=== PATIENT | female | born 1995 | race Caucasian/White ===

== ENCOUNTER 2024-04-04 16:03 | Inpatient (IN) | payer OTHER ==
[~2024-04-04 16:03] MED LIST: Acetaminophen 500 MG TAB PO PRN; Bisacodyl 10 MG SUPP PR PRN; Boostrix 0.5 ML (Tdap) VIAL (>/=7 yrs of age) IM SCH; Bupivacaine HCl 0.5%/Epinephrine 1:200,000/PF 30 ml Vial ONE; Bupivacaine/Epinephrine 0.25% 30 ML VIAL ONE; CEFAZOLIN 2 GM VIAL ONE; Carboprost 250 MCG/ML AMP IM PRN; Carboprost 250 MCG/ML AMP ONE; Diphenoxylate HCl/Atropine Tablet PO PRN; HYDROcodone/Acetaminophen 5/325 mg Tablet PO PRN; Ibuprofen 800 MG TAB ONE; Ibuprofen 800 MG TAB PO PRN; Lactated Ringer's 1,000 ML IV SCH; Lactated Ringer's 500 ML IV PRN; Lanolin Ointment 7 GM TUBE TOP PRN; Lidocaine 1% (PF) 30 ML VIAL SC PRN; Methylergonovine 0.2 MG/ML VIAL IM PRN; Methylergonovine 0.2 MG/ML VIAL ONE; Milk Of Magnesia 30 ML UDCUP PO PRN; Misoprostol 200 MCG TAB ONE; Misoprostol 200 MCG TAB RC PRN; Misoprostol 200 MCG TAB VAG SCH; Moisturizing Cream (Eucerin) 113 GM JAR TOP PRN; Ondansetron PF 4 MG/2 ML Vial IVP PRN; Oxytocin 30 units/NS 500 ML 1,000 ML IV SCH; Oxytocin 30 units/NS 500 ML 500 ML IVPB SCH; Oxytocin 30 units/NS 500 ML 500 ML ONE; Preparation H Ointment 28 GM TUBE PR PRN; Promethazine HCl 25 MG/ML VIAL IM PRN; Tranexamic Acid 1,000 MG/10 ML VIAL IVP PRN; Tranexamic Acid 1,000 MG/10 ML VIAL ONE; diphenhydrAMINE 25 MG CAP PO PRN; ePHEDrine/0.9% NaCl/PF SYRINGE 50 mg/10 ml SLOW IVP PRN; fentaNYL 50 mcg/mL 1 mL Vial SLOW IVP PRN; fentaNYL/Ropivacaine Epidural 100 ML ONE; fentaNYL/Ropivacaine Epidural 100 ML in Premix 1 BAG EPIDURAL SCH; hydrALAZINE 20 MG/ML VIAL SLOW IVP PRN
[2024-04-04] MEDS ORDERED: Acetaminophen 500 MG TAB ONE (16:35)
[2024-04-04 21:42] LABS: HBsAg Index 0.17 S/CO (0-0.99); HIV (1/2) Antibody/Antigen NonReactive (NonReactive); HIV 1/2 INDEX 0.13 S/CO (<1.00); Hep B Surf Ag - L&D NonReactive S/CO (NonReactive)
[2024-04-04 21:43] LABS: Syphilis Antibody Nonreactive (Nonreactive); Syphilis Antibody Index 0.09 S/CO (<1.00 Non-Reactive)
[2024-04-04 21:44] LABS: #Basophils 0.01 10x3/uL (0.0-0.2); #Eosinophils 0.03 10x3/uL (0.0-0.5); #Monocytes 0.61 10x3/uL (0.0-1.1); #Neutrophils 7.02 10x3/uL (1.5-8.4); %Basophils 0.1 % (0.0-2.0); %Eosinophils 0.3 % (0.0-6.0); %Lymphocytes 23.6 % (18.0-47.0); %Neutrophils 68.9 % (40.0-75.0); Hematocrit 32.3 % (34.9-44.5); Hemoglobin 10.9 g/dL (12.0-15.5); Mean Corpuscular HGB CONC 33.7 g/dL (32.0-36.0); Mean Corpuscular Volume 85.9 fL (81.6-98.3); Mean Platelet Volume 10.7 fL (7.4-10.4); Platelet Count 321 10x3/uL (150-450); RBC Distribution Width 12.4 % (11.5-14.5); Red Blood Cell (RBC) Count 3.76 10x6/uL (3.90-5.03); White Blood Cell (WBC) Count 10.2 10x3/uL (3.5-10.5)
[2024-04-04 21:48] LABS: Amphetamine Not Detected (NotDetected); Barbiturates Screen Not Detected (NotDetected); Benzodiazepine Screen Not Detected (NotDetected); Cocaine Metabolite Screen Not Detected (NotDetected); Methadone Not Detected (NotDetected); Methamphetamine Not Detected (NotDetected); Opiate Screen Not Detected (NotDetected); Oxycodone Screen Not Detected (NotDetected); Phencyclidine (PCP) Not Detected (NotDetected); THC/Cannabinoid Screen Detected (NotDetected); Tricyclic Screen Not Detected (NotDetected)
[2024-04-04 22:33] LABS: Amphetamine Not Detected (NotDetected); Barbiturates Screen Not Detected (NotDetected); Benzodiazepine Screen Not Detected (NotDetected); Cocaine Metabolite Screen Not Detected (NotDetected); Methadone Not Detected (NotDetected); Methamphetamine Not Detected (NotDetected); Opiate Screen Not Detected (NotDetected); Oxycodone Screen Not Detected (NotDetected); Phencyclidine (PCP) Not Detected (NotDetected); THC/Cannabinoid Screen Detected (NotDetected); Tricyclic Screen Not Detected (NotDetected)
[2024-04-04] MEDS ORDERED: Acetaminophen 500 MG TAB PO PRN (22:51)
[2024-04-04] MEDS ORDERED: Naloxone HCl 0.4 mg/ml Vial IV PRN ×2 (22:54)
[2024-04-04] MEDS ORDERED: Promethazine HCl 25 MG/ML VIAL IM PRN (22:54)
[2024-04-04] MEDS ORDERED: Ondansetron PF 4 MG/2 ML Vial IVP PRN (22:54)
[2024-04-04] MEDS ORDERED: diphenhydrAMINE 50 MG/ML VIAL IVP PRN (22:54)
[2024-04-05 04:45] LABS: Hematocrit 32.4 % (34.9-44.5); Hemoglobin 10.7 g/dL (12.0-15.5); Platelet Count 285 10x3/uL (150-450)
[2024-04-05] MEDS: Prenatal Vitamin 1 TAB PO SCH (08:54)
[2024-04-05] MEDS: Docusate 100 MG CAP PO SCH (08:55)
[2024-04-05] MEDS: Ferrous Sulfate 325 MG TAB PO SCH (08:55)
[2024-04-05] MEDS: Ibuprofen 800 MG TAB PO SCH (14:50)
== END 2024-04-05 17:40 | disposition home or self-care (01) | DRG 807 ==
LOC: CSHLD 16:03 → CSHPP 16:04
PROVIDERS: ADMIT Family Medicine; ATTEND Family Medicine
PROC: 10E0XZZ Delivery of Products of Conception, External Approach (ICD-10-PCS; principal; 2024-04-04)
PROC: 10907ZC Drainage of Amniotic Fluid, Therapeutic from Products of Conception, Via Natural or Artificial Opening (ICD-10-PCS; 2024-04-04)
DX: O99.324 Drug use complicating childbirth (principal); Z37.0 Single live birth; F12.90 Cannabis use, unspecified, uncomplicated; Z3A.38 38 weeks gestation of pregnancy; Z79.899 Other long term (current) drug therapy
CPT/HCPCS: 36415; 51702; 80306; 85014; 85018; 85025; 85049; 86762; 86780; 86850; 86900; 86901; 87340; 87389; 99285